=== PATIENT | male | born 1990 | race Caucasian/White ===

== ENCOUNTER 2017-11-03 18:33 | Emergency (ER) | payer OTHER ==
--- NOTE | 2017-11-03 19:00 | ED Physician Documentation ---
PD HPI HEENT - Stated complaint Stated Complaint: RINGING IN EAR - Chief complaint Chief Complaint: Heent - History obtained from History obtained from: Patient - History of Present Illness Timing - onset: Other (He has had ringing in the right ear only for about a day. There is no real hearing loss except maybe mildly. He had some pressure and some headache with it though which is gone. He did have cough and cold symptoms recently but that has also gone.) Review of Systems Constitutional: denies: Fever, Chills Eyes: denies: Loss of vision, Decreased vision Nose: denies: Rhinorrhea / runny nose, Congestion Throat: denies: Sore throat PD PAST MEDICAL HISTORY - Past Medical History Past Medical History: Yes GI: GERD Psych: Depression, Anxiety - Past Surgical History Past Surgical History: No - Present Medications Home Medications: Ambulatory Orders Medication Instructions Recorded Confirmed Venlafaxine [Effexor] 150 mg PO DAILY 01/23/14 01/23/14 Omeprazole [PriLOSEC] 20 mg PO DAILY 11/03/17 - Allergies Allergies/Adverse Reactions: Allergies Allergy/AdvReac Type Severity Reaction Status Date / Time No Known Drug Allergies Allergy Verified 11/03/17 18:40 - Social History Does the pt smoke?: No Smoking Status: Never smoker Does the pt drink ETOH?: Yes Does the pt have substance abuse?: No PD ED PE NORMAL - Vitals Vital signs reviewed: Yes - General General: Alert and oriented X 3, No acute distress - HEENT HEENT: PERRL, EOMI, Ears normal (TMs are normal, no significant cerumen.) - Neck Neck: Supple, no meningeal sign, No bony TTP - Neuro Neuro: Alert and oriented X 3 Eye Opening: Spontaneous Motor: Obeys Commands Verbal: Oriented GCS Score: 15 - Psych Psych: Normal mood, Normal affect Results - Vitals Vitals: Vital Signs - 24 hr 11/03/17 18:36 Temperature 36.2 C L Heart Rate 92 Respiratory 18 Rate Blood Pressure 139/90 H O2 Saturation 100 Oxygen O2 Source Room air Departure - Departure Disposition: 01 Home, Self Care Clinical Impression: Tinnitus of right ear Condition: Good Record reviewed to determine appropriate education?: Yes Instructions: Tinnitus Comments: Call for ENT followup in [facility], [place] [phone] Return if worse Your blood pressure was elevated today on check into the emergency department. This does not mean that you have hypertension, it is a common phenomenon to come to the emergency department and have elevated blood pressure. I recommend that you see your primary care physician within the week to have it rechecked when you are feeling better.
[2017-11-03 19:19] VITALS: BP 140/89
== END 2017-11-03 19:19 | disposition home or self-care (01) ==
LOC: ED 18:33
DX: H93.11 Tinnitus, right ear (principal); R03.0 Elevated blood-pressure reading, without diagnosis of hypertension
CPT/HCPCS: 99282; 99283

== ENCOUNTER 2018-09-24 14:45 | Outpatient (CLI) | payer OTHER ==
--- NOTE | 2018-09-25 12:01 | MRI Report ---
Reason: PAIN IN UNSPECIFIED KNEE Procedure Date: 09/24/2018 Accession Number: [id number] / [id number] Procedure: MRI - Knee LT W/O CPT Code: FULL RESULT: EXAM: LEFT KNEE MRI WITHOUT CONTRAST EXAM DATE: 09/24/2018 03:07 PM. CLINICAL HISTORY: Left knee pain, weakness, and instability. COMPARISON: None. TECHNIQUE: Multiplanar, multisequence T1-weighted and fluid-sensitive sequences of the knee without contrast. Other: None. FINDINGS: Bones: No fractures or subluxations. No marrow edema. No bone lesions. Articular Cartilage: Unremarkable. Medial Meniscus: The medial meniscus is intact. Lateral Meniscus: The lateral meniscus is intact. Cruciate Ligaments: The anterior and posterior cruciate ligaments are intact. Collateral Ligaments: The medial collateral and lateral collateral ligamentous structures are intact. Tendons: The quadriceps, patellar, semimembranosus, and popliteus tendons are unremarkable. Musculature: No edema or fatty atrophy. Other: No effusion. The patient has a moderate-sized multilobulated popliteal cyst that mostly extends superiorly. It is best visualized on series 801, image 22). No loose bodies. The medial and lateral retinacula are intact. The subcutaneous tissues and fat pads are unremarkable. IMPRESSION: Moderate-sized popliteal cyst. [facility] MUSCULOSKELETAL RADIOLOGY SECTION
== END 2018-09-24 14:46 | disposition home or self-care (01) ==
LOC: DI 14:45
PROVIDERS: ATTEND Family Medicine
DX: M71.22 Synovial cyst of popliteal space [Baker], left knee (principal)

== ENCOUNTER 2020-07-28 15:12 | Emergency (ER) | payer OTHER ==
[2020-07-28 15:19] VITALS: BP 136/89
--- NOTE | 2020-07-28 15:40 | ED Physician Documentation ---
History of Present Illness - Stated complaint Stated Complaint: PRESCRIPTION REFILL - Chief complaint Chief Complaint: General - History obtained from History obtained from: Patient - History of Present Illness Timing: Today - Additonal information Additional information: 30-year-old male on several prescription medications his last access to his medical care through the [facility] and he is no longer able to fill refill his prescriptions there he has run out of his Effexor and Neurontin. He does have an appointment to see a provider in the coming week. Review of Systems Constitutional: denies: Fever Respiratory: denies: Cough GI: denies: Vomiting, Diarrhea PD PAST MEDICAL HISTORY - Past Medical History Past Medical History: Yes GI: GERD Psych: Depression, Anxiety - Past Surgical History Past Surgical History: No - Present Medications Home Medications: Ambulatory Orders Medication Instructions Recorded Confirmed Venlafaxine [Effexor] 150 mg PO DAILY 01/23/14 07/28/20 Omeprazole [PriLOSEC] 20 mg PO DAILY 11/03/17 07/28/20 Gabapentin [Neurontin] 600 mg PO DAILY 07/28/20 07/28/20 Gabapentin [Neurontin] 600 mg PO QPM #20 tablet 07/28/20 Loratadine [Claritin] 10 mg PO DAILY 07/28/20 07/28/20 Metoprolol Succinate [Toprol Xl] 25 mg PO DAILY 07/28/20 07/28/20 Venlafaxine ER [Effexor ER] 150 mg PO DAILY #20 capsule 07/28/20 - Allergies Allergies/Adverse Reactions: Allergies Allergy/AdvReac Type Severity Reaction Status Date / Time No Known Drug Allergies Allergy Verified 07/28/20 15:14 - Social History Does the pt smoke?: No Smoking Status: Never smoker Does the pt drink ETOH?: Yes Does the pt have substance abuse?: No - Immunizations Immunizations are current?: Yes - POLST Patient has POLST: No PD ED PE NORMAL - Vitals Vital signs reviewed: Yes (hypertensive) - General General: Alert and oriented X 3, No acute distress, Well developed/nourished - HEENT HEENT: Atraumatic, PERRL, EOMI - Respiratory Respiratory: No respiratory distress - Derm Derm: Normal color, Warm and dry, No rash - Extremities Extremities: No deformity, No edema - Neuro Neuro: Alert and oriented X 3, 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 Departure - Departure Disposition: Home, Self Care Clinical Impression: Medication refill Condition: Stable Instructions: Venlafaxine extended-release capsules, Gabapentin capsules or tablets Follow-Up: Audrey Herrera DO [Primary Care Provider] - Prescriptions: Venlafaxine ER [Effexor ER] 150 mg PO QPM #20 capsule Gabapentin [Neurontin] 600 mg PO QPM #20 tablet
--- OUTSIDE RECORDS SUMMARY | 2020-08-01 01:52 | EXTERNAL MEDICAL SUMMARY RPT | Continuity of Care Document ---
:1990 Demographics Phone Unavailable Preferred Language Unknown Marital Status Unknown [employer] Affiliation Unknown Race Unknown Ethnic Group Unknown Author Organization [facility] [address] [place] [address] Phone Care Team Providers Name Role Phone Scheidt Unavailable Unavailable Allergies date description facility NO KNOWN ENVIRONMENTAL ALLERGIES [facility] NO ALLERGY INFORMATION AVAILABLE [facility] NO KNOWN ALLERGIES [facility] [place] No Known Drug Allergies [facility] No Known Drug Allergies [facility] Social History date description facility [id number]
== END 2020-07-28 15:47 | disposition home or self-care (01) ==
LOC: ED 15:12
DX: Z76.0 Encounter for issue of repeat prescription (principal)
CPT/HCPCS: 99282; 99283

== ENCOUNTER 2020-08-06 15:14 | Emergency (ER) | payer OTHER ==
[2020-08-06 15:23] VITALS: BP 131/85
--- NOTE | 2020-08-06 15:32 | ED Physician Documentation ---
History of Present Illness - Stated complaint Stated Complaint: MED REFILL - Chief complaint Chief Complaint: General - History obtained from History obtained from: Patient - Additonal information Additional information: He presents for refill of Effexor. He has a new doctor's appointment in a few weeks, but would run out today. No acute complaints. No SI or HI. Review of Systems Constitutional: reports: Reviewed and negative Cardiac: reports: Reviewed and negative Respiratory: reports: Reviewed and negative PD PAST MEDICAL HISTORY - Past Medical History Past Medical History: Yes GI: GERD Psych: Depression, Anxiety - Past Surgical History Past Surgical History: No - Present Medications Home Medications: Ambulatory Orders Medication Instructions Recorded Confirmed Venlafaxine [Effexor] 150 mg PO DAILY 01/23/14 08/06/20 Omeprazole [PriLOSEC] 20 mg PO DAILY 11/03/17 08/06/20 Gabapentin [Neurontin] 600 mg PO DAILY 07/28/20 08/06/20 Gabapentin [Neurontin] 600 mg PO QPM #20 tablet 07/28/20 08/06/20 Loratadine [Claritin] 10 mg PO DAILY 07/28/20 08/06/20 Metoprolol Succinate [Toprol Xl] 25 mg PO DAILY 07/28/20 08/06/20 Venlafaxine HCl [Effexor Xr] 150 mg PO DAILY #30 cap.er.24h 08/06/20 - Allergies Allergies/Adverse Reactions: Allergies Allergy/AdvReac Type Severity Reaction Status Date / Time No Known Drug Allergies Allergy Verified 07/28/20 15:14 - Social History Does the pt smoke?: No Smoking Status: Never smoker Does the pt drink ETOH?: Yes Does the pt have substance abuse?: No - Immunizations Immunizations are current?: Yes - POLST Patient has POLST: No PD ED PE NORMAL - Vitals Vital signs reviewed: Yes - General General: Alert and oriented X 3, No acute distress - Neuro Neuro: Alert and oriented X 3, Normal speech - Psych Psych: Normal mood, Normal affect Results - Vitals Vitals: Vital Signs - 24 hr 08/06/20 15:21 Temperature 36.3 C L Heart Rate 98 Respiratory 18 Rate Blood Pressure 131/85 H O2 Saturation 99 Oxygen O2 Source Room air Departure - Departure Disposition: Home, Self Care Clinical Impression: Medication refill Depressed Qualifiers: Depression Type: major depressive disorder Major depression recurrence: recurrent Active/Remission status: currently active Major depression episode severity: unspecified Qualified Code(s): F33.9 - Major depressive disorder, recurrent, unspecified Condition: Good Record reviewed to determine appropriate education?: Yes Instructions: ED Depression Prescriptions: Venlafaxine HCl [Effexor Xr] 150 mg PO DAILY #30 cap.er.24h Comments: Follow-up with the physician as scheduled. Return if worsening.
== END 2020-08-06 15:39 | disposition home or self-care (01) ==
LOC: ED 15:14
DX: Z76.0 Encounter for issue of repeat prescription (principal); F33.9 Major depressive disorder, recurrent, unspecified
CPT/HCPCS: 99281

== ENCOUNTER 2020-11-13 08:00 | Outpatient (CLI) | payer OTHER ==
[2020-11-13 18:01] LABS: BASOPHILS % (AUTO) 0.6 %; EOSINOPHILS # (AUTO) 0.1 10^3/uL (0.0-0.7); EOSINOPHILS % (AUTO) 2.2 %; HCT - HEMATOCRIT 41.9 % (42.0-52.0); HGB - HEMOGLOBIN 14.3 g/dL (14.0-18.0); LYMPHOCYTES # (AUTO) 1.9 10^3/uL (1.5-3.5); LYMPHOCYTES % (AUTO) 29.7 %; MEAN CORPUSCULAR HEMOGLOBIN 30.2 pg (27.0-31.0); MEAN CORPUSCULAR HGB CONC 34.1 g/dL (32.0-36.0); MEAN CORPUSCULAR VOLUME 88.6 fL (80.0-94.0); MEAN PLATELET VOLUME 9.9 fL (7.4-11.4); MONOCYTES # (AUTO) 0.6 10^3/uL (0.0-1.0); MONOCYTES % (AUTO) 9.3 %; NEUTROPHILS # (AUTO) 3.7 10^3/uL (1.5-6.6); PLT - PLATELET COUNT 263 10^3/uL (130-450); RED BLOOD COUNT 4.73 10^6/uL (4.70-6.10); RED CELL DISTRIBUTION WIDTH 12.5 % (12.0-15.0); WHITE BLOOD COUNT 6.4 x10^3/uL (4.8-10.8)
[2020-11-13 18:12] LABS: RHEUMATOID FACTOR NEGATIVE (Negative)
[2020-11-13 18:18] LABS: ALBUMIN/GLOBULIN RATIO 1.7 (1.0-2.2); ALKALINE PHOSPHATASE 39 IU/L (42-121); ALT ALANINE AMINOTRANSFERASE 47 IU/L (10-60); AST ASPARTATE AMINOTRANSFERASE 24 IU/L (10-42); BILIRUBIN,TOTAL 0.5 mg/dL (0.2-1.0); BUN - BLOOD UREA NITROGEN 11 mg/dL (6-20); CALCIUM 9.8 mg/dL (8.5-10.3); CARBON DIOXIDE - CO2 28 mmol/L (21-32); CHLORIDE 103 mmol/L (101-111); CREATININE 0.9 mg/dL (0.6-1.2); GFR - MDRD 98 (>89); GLUCOSE 94 mg/dL (70-100); POTASSIUM 3.8 mmol/L (3.5-5.0); SODIUM 141 mmol/L (135-145); URIC ACID 7.1 mg/dL (2.6-7.2)
[2020-11-13 19:09] LABS: CRP - C-REACTIVE PROTEIN < 1.0 mg/dL (0-1.0)
[2020-11-15 13:12] LABS: DNA (DS) ANTIBODY 4 IU/mL
[2020-11-15 14:28] LABS: ANA SCREEN NEGATIVE (NEGATIVE)
[2020-11-15 20:56] LABS: CYCLIC CITRULL PEPTIDE CCP IGG <16 UNITS
== END 2020-11-13 23:59 | disposition home or self-care (01) ==
LOC: LAB.WCP 08:00
PROVIDERS: ATTEND Family Medicine
DX: M25.50 Pain in unspecified joint (principal)
CPT/HCPCS: 36415; 80053; 84550; 85025; 85651; 86038; 86140; 86200; 86225; 86430

== ENCOUNTER 2021-01-09 10:51 | Emergency (ER) | payer OTHER ==
[2021-01-09 13:13] LABS: BASOPHILS # (AUTO) 0.1 10^3/uL (0.0-0.1); BASOPHILS % (AUTO) 1.1 %; EOSINOPHILS # (AUTO) 0.2 10^3/uL (0.0-0.7); EOSINOPHILS % (AUTO) 2.9 %; HCT - HEMATOCRIT 41.5 % (42.0-52.0); HGB - HEMOGLOBIN 14.2 g/dL (14.0-18.0); LYMPHOCYTES # (AUTO) 1.9 10^3/uL (1.5-3.5); LYMPHOCYTES % (AUTO) 30.5 %; MEAN CORPUSCULAR HEMOGLOBIN 30.5 pg (27.0-31.0); MEAN CORPUSCULAR HGB CONC 34.2 g/dL (32.0-36.0); MEAN CORPUSCULAR VOLUME 89.2 fL (80.0-94.0); MONOCYTES # (AUTO) 0.5 10^3/uL (0.0-1.0); MONOCYTES % (AUTO) 7.8 %; NEUTROPHILS # (AUTO) 3.6 10^3/uL (1.5-6.6); NEUTROPHILS % (AUTO) 57.5 %; PLT - PLATELET COUNT 228 10^3/uL (130-450); RED BLOOD COUNT 4.65 10^6/uL (4.70-6.10); RED CELL DISTRIBUTION WIDTH 12.7 % (12.0-15.0); WHITE BLOOD COUNT 6.2 x10^3/uL (4.8-10.8)
--- NOTE | 2021-01-09 13:28 | ED Physician Documentation ---
History of Present Illness - Stated complaint Stated Complaint: CHEST PX - Chief complaint Chief Complaint: Cardiac - Additonal information Additional information: 30-year-old male presents to the emergency department for evaluation of inter mittent substernal chest pain that began 2 days ago. It is not exertional and sometimes does occur at rest. No fevers or vomiting. Nonradiating. No history of similar. This gentleman does have a history of SVT. He did initially have an ablation which controlled symptoms until a few years ago when it returned. Unfortunately was not a candidate for ablation at that time therefore he is now controlled with metoprolol succinate 25 mg twice daily. He does have a history of GERD but denies that his GERD symptoms are worsening. He is on omeprazole. No history of hypertension, no tobacco or nicotine use. No family history of sudden early cardiac . He is followed by a mri technologist in [facility]. Review of Systems Constitutional: reports: Reviewed and negative Eyes: reports: Reviewed and negative Nose: reports: Reviewed and negative Throat: reports: Reviewed and negative Cardiac: reports: Chest pain / pressure. denies: Palpitations, Pedal edema, Calf pain Respiratory: denies: Dyspnea, Cough GI: reports: Reviewed and negative : reports: Reviewed and negative Skin: reports: Reviewed and negative PD PAST MEDICAL HISTORY - Past Medical History GI: GERD Psych: Depression, Anxiety - Past Surgical History Past Surgical History: No - Present Medications Home Medications: Ambulatory Orders Medication Instructions Recorded Confirmed Omeprazole [PriLOSEC] 20 mg PO DAILY 11/03/17 01/09/21 Gabapentin [Neurontin] 600 mg PO QPM #20 tablet 07/28/20 01/09/21 Loratadine [Claritin] 10 mg PO DAILY 07/28/20 01/09/21 Metoprolol Succinate [Toprol Xl] 25 mg PO BID 07/28/20 01/09/21 Venlafaxine HCl [Effexor Xr] 150 mg PO DAILY #30 cap.er.24h 08/06/20 01/09/21 - Allergies Allergies/Adverse Reactions: Allergies Allergy/AdvReac Type Severity Reaction Status Date / Time No Known Drug Allergies Allergy Verified 07/28/20 15:14 - Social History Does the pt smoke?: No Smoking Status: Never smoker Does the pt drink ETOH?: Yes Does the pt have substance abuse?: No - Immunizations Immunizations are current?: Yes - POLST Patient has POLST: No PD ED PE NORMAL - General General: Alert and oriented X 3, No acute distress - Neck Neck: Supple, no meningeal sign - Cardiac Cardiac: RRR, No murmur - Respiratory Respiratory: Clear bilaterally - Abdomen Abdomen: Normal bowel sounds, Soft, Non tender, Non distended - Back Back: No CVA TTP, No spinal TTP - Derm Derm: Normal color, No rash - Extremities Extremities: No deformity, No tenderness to palpate, Normal ROM s pain, No edema, No calf tenderness / cord - Neuro Neuro: Alert and oriented X 3 Eye Opening: Spontaneous Motor: Obeys Commands Verbal: Oriented GCS Score: 15 Results - Vitals Vitals: Vital Signs - 24 hr 01/09/21 01/09/21 10:57 12:55 Temperature 36.5 C 37.0 C Heart Rate 77 80 Respiratory 16 16 Rate Blood Pressure 126/85 H 125/80 O2 Saturation 99 100 Oxygen O2 Source Room air - EKG (time done) 1058 Rate: Rate (enter#) (79) Rhythm: NSR [place]: Normal Intervals: Normal ME QRS: Normal Ischemia: Normal ST segments Compare to prior EKG: Old EKG unavailable Computer interpretation: Agree with computer - Labs Labs: Laboratory Tests 01/09/21 01/09/21 01/09/21 13:08 13:08 13:08 WBC 6.2 RBC 4.65 L Hgb 14.2 Hct 41.5 L MCV 89.2 MCH 30.5 MCHC 34.2 RDW 12.7 Plt Count 228 MPV 9.0 Neut # (Auto) 3.6 Lymph # (Auto) 1.9 [place] # (Auto) 0.5 Eos # (Auto) 0.2 Baso # (Auto) 0.1 Absolute Nucleated RBC 0.00 Nucleated RBC % 0.0 Sodium 138 Potassium 3.8 Chloride 105 Carbon Dioxide 27 Anion Gap 6.0 BUN 13 Creatinine 0.9 Estimated GFR (MDRD) 98 Glucose 122 H Calcium 9.3 Total Bilirubin 0.6 AST 21 ALT 30 Alkaline Phosphatase 40 L Troponin I High Sens < 2.3 L Total Protein 7.4 Albumin 4.5 Globulin 2.9 Albumin/Globulin Ratio 1.6 Lipase 30 - Rads (name of study) CXR Radiology: Final report received (No acute cardiopulmonary process) PD MEDICAL DECISION MAKING - ED course Complexity details: reviewed results, re-evaluated patient, d/w patient, d/w family ED course: 30-year-old male presents emergency department for evaluation of midsternal chest pain that has been intermittent for 3 days. He does have a history of SVT status post ablation and is currently on Metroprolol twice daily. Screening EKG today is nonischemic. All labs including high-sensitivity troponin are negative. His heart score is 1. He does follow-up with a mri technologist in early February. Chest x-ray did not reveal any acute worrisome abnormalities and this gentleman does have a history of anxiety which I suspect may be contributing to the ED visit today. I have encouraged close follow-up with PCP as well as his mri technologist. He may benefit from an outpatient stress test and echocardiogram. Emergent return precautions were discussed. Departure - Departure Disposition: Home, Self Care Clinical Impression: History of supraventricular tachycardia Chest pain Qualifiers: Chest pain type: unspecified Qualified Code(s): R07.9 - Chest pain, unspecified Condition: Stable Record reviewed to determine appropriate education?: Yes Instructions: ED Chest Pain Atypical Unkn Cause Follow-Up: Audrey Herrera DO [Primary Care Provider] - Comments: Gordon you are seen in the emergency department today for chest pain. You do have a history of SVT. As we discussed your chest x-ray, EKG as well as labs are all essentially normal. You are not having a heart attack today. I think it is important that you continue to discuss this ED visit with your primary care provider as well as your mri technologist. Your very low risk for heart disease at this time but you may benefit from an outpatient stress test or echocardiogram that can be performed with your mri technologist. If at any point you have worsening chest pain, any fainting episodes, cannot breathe or have leg swelling please return immediately to the ER for a second look
[2021-01-09 13:30] LABS: ALBUMIN 4.5 g/dL (3.2-5.5); ALBUMIN/GLOBULIN RATIO 1.6 (1.0-2.2); BILIRUBIN,TOTAL 0.6 mg/dL (0.2-1.0); CALCIUM 9.3 mg/dL (8.5-10.3); CREATININE 0.9 mg/dL (0.6-1.2); POTASSIUM 3.8 mmol/L (3.5-5.0); TOTAL PROTEIN 7.4 g/dL (6.7-8.2)
--- NOTE | 2021-01-09 13:47 | XRAY Report ---
PROCEDURE: Chest 1 View X-Ray INDICATIONS: chest pain TECHNIQUE: One view of the chest was acquired. COMPARISON: 01/23/2014 FINDINGS: Surgical changes and devices: None. Lungs and pleura: No pleural effusions or pneumothorax. Lungs are clear. Mediastinum: Mediastinal contours appear normal. Heart size is normal. Bones and chest wall: No suspicious bony lesions. Overlying soft tissues appear unremarkable. IMPRESSION: No acute cardiopulmonary pathology. Reviewed by: Vijay Cordero MD on 01/09/2021 1:46 PM PDT Approved by: Vijay Cordero MD on 01/09/2021 1:46 PM PDT Station ID: [id number]
[2021-01-09 14:08] VITALS: BP 120/85
== END 2021-01-09 14:12 | disposition home or self-care (01) ==
LOC: ED 10:51
DX: R07.89 Other chest pain (principal); Z86.79 Personal history of other diseases of the circulatory system; F41.9 Anxiety disorder, unspecified; K21.9 Gastro-esophageal reflux disease without esophagitis
CPT/HCPCS: 36415; 80053; 83690; 84484; 85025; 93005; 99284

== ENCOUNTER 2021-06-27 08:00 | Outpatient (CLI) | payer OTHER | END 2021-06-27 23:59 | LOC: LAB.N 08:00 | PROVIDERS: ATTEND Physician Assistant | DX: R05.9 Cough, unspecified (principal); Z20.822 Contact with and (suspected) exposure to COVID-19 ==

== ENCOUNTER 2021-12-03 19:35 | Outpatient (CLI) | payer OTHER | END 2021-12-03 19:36 | disposition EMS.NT | LOC: EMS 19:35 | DX: R51.9 Headache, unspecified (principal); I10 Essential (primary) hypertension ==